=== PATIENT | female | born 1980 | race African-American/Black ===

== ENCOUNTER 2016-10-13 14:15 | Emergency (ER) | payer SELFPAY ==
[~2016-10-13] VITALS: Ht 157.5 cm; Wt 56.8 kg
[2016-10-13] MEDS ORDERED: CETIRIZINE HCL 10 MG TABLET PO ONE (15:15)
[2016-10-13 16:03] VITALS: BP 110/66
== END 2016-10-13 16:12 | disposition home or self-care (01) ==
LOC: EMS 14:17
DX: L50.0 Allergic urticaria (principal)
CPT/HCPCS: 99282